=== PATIENT | female | born 1995 | race African-American/Black ===

== ENCOUNTER 2021-01-04 19:24 | Emergency (ER) | payer BC, SELFPAY ==
[2021-01-04] MEDS ORDERED: Ondansetron PF 4 MG/2 ML Vial ONE (20:24)
[2021-01-04] MEDS ORDERED: Promethazine HCl 25 MG/ML VIAL ONE (20:25)
[2021-01-04 20:28] LABS: #Eosinphils 0.5 10x3/uL (0.0-0.5); #Monocytes 0.5 10x3/uL (0.0-1.1); #Neutrophils 6.3 10x3/uL (1.5-8.4); %Basophils 0.3 % (0.0-2.0); %Eosinophils 5.1 % (0.0-6.0); %Lymphocytes 23.4 % (18.0-47.0); %Monocytes 5.1 % (0.0-10.0); %Neutrophils 65.8 % (40.0-75.0); Hemoglobin 12.2 g/dL (12.0-15.5); Mean Corpuscular HGB CONC 31.9 g/dL (32.0-36.0); Mean Corpuscular Hemoglobin 27.9 pg (27.0-33.0); Mean Corpuscular Volume 87.4 fl (81.6-98.3); Mean Platelet Volume 9.8 fl (7.4-10.4); Platelet Count 253 10x3/uL (150-450); RBC Distribution Width 12.6 % (11.5-14.5); Red Blood Cell (RBC) Count 4.37 10x6/uL (3.90-5.03); White Blood Cell (WBC) Count 9.6 10x3/uL (3.5-10.5)
[2021-01-04 20:50] LABS: ALT (SGPT) 8 U/L (8-55); AST (SGOT) 16 U/L (5-34); Albumin 3.9 g/dL (3.5-5.0); Alkaline Phosphatase 61 U/L (40-110); Anion Gap 11 mmol/L (10-20); BUN (Urea Nitrogen) 8 mg/dL (7.0-18.7); Bilirubin, Total 0.2 mg/dL (0.2-1.2); Calc. Creatinine Clearance 0 mL/min (70-130); Calcium 9.3 mg/dL (7.8-10.44); Carbon Dioxide 24 mmol/L (22-29); Chloride 104 mmol/L (98-107); Globulin 3.7 g/dL (2.4-3.5); Glucose 106 mg/dL (70-105); Lipase 13 U/L (8-78); Potassium 3.4 mmol/L (3.5-5.1); Protein, Total 7.6 g/dL (6.0-8.3); Sodium 136 mmol/L (136-145)
[2021-01-04 21:34] LABS: Bilirubin Neg (Negative); Blood, Urine Negative (Negative); Clarity Clear (Clear); Glucose, Urine (Dipstick) Normal (Negative); Ketone, Urine 15 mg/dL (Negative); Leukocyte 25 (Negative); Nitrite Negative (Negative); Protein, Urine (Dipstick) Negative (Neg-Trace); pH, Urine 6.5 (5.0-9.0)
[2021-01-04 21:44] LABS: Bacteria/HPF Rare-Few HPF (None Seen); Mucous/LPF 1+ LPF (<2+); RBC/HPF None Seen HPF (0-3); Squamous Epithelial 0-3 HPF (0-3); WBC/HPF 0-3 HPF (0-3)
== END 2021-01-04 23:11 | disposition home or self-care (01) ==
LOC: CSHERS 19:24
DX: O21.9 Vomiting of pregnancy, unspecified (principal); O99.891 Other specified diseases and conditions complicating pregnancy; R19.7 Diarrhea, unspecified; O99.511 Diseases of the respiratory system complicating pregnancy, first trimester; J45.909 Unspecified asthma, uncomplicated; Z3A.08 8 weeks gestation of pregnancy
CPT/HCPCS: 80053; 81003; 81015; 83690; 85025; 96365; 96375; J2405; J2550

== ENCOUNTER 2021-03-04 08:07 | Emergency (ER) | payer BC, MEDICAID ==
[2021-03-04] MEDS ORDERED: Acetaminophen 500 MG TAB ONE (08:59)
[2021-03-04 17:29] LABS: SARS-CoV-2 PCR by NAA DETECTED (NotDetected)
== END 2021-03-04 10:48 | disposition home or self-care (01) ==
LOC: CSHERS 08:07
DX: U07.1 COVID-19 (principal); J45.909 Unspecified asthma, uncomplicated
CPT/HCPCS: 87804; 99283; U0003; U0005

== ENCOUNTER 2021-06-14 12:48 | Day surgery (SDC) | payer BC ==
[2021-06-14 13:15] VITALS: BMI 34.7
[2021-06-14] MEDS ORDERED: hydrALAZINE 20 MG/ML VIAL SLOW IVP PRN (13:29)
[2021-06-14] MEDS ORDERED: Ondansetron PF 4 MG/2 ML Vial IVP SCH (13:30)
[2021-06-14] MEDS ORDERED: Lactated Ringer's 1,000 ML IV SCH (13:30)
[2021-06-14 14:24] LABS: ALT (SGPT) 8 U/L (8-55); AST (SGOT) 17 U/L (5-34); Albumin 3.3 g/dL (3.5-5.0); Alkaline Phosphatase 74 U/L (40-110); Anion Gap 13 mmol/L (10-20); BUN (Urea Nitrogen) 6 mg/dL (7.0-18.7); Bilirubin, Total 0.3 mg/dL (0.2-1.2); Calc. Creatinine Clearance 210 mL/min (70-130); Carbon Dioxide 21 mmol/L (22-29); Chloride 107 mmol/L (98-107); Globulin 3.5 g/dL (2.4-3.5); Glucose 95 mg/dL (70-105); Potassium 3.5 mmol/L (3.5-5.1); Protein, Total 6.8 g/dL (6.0-8.3); Sodium 137 mmol/L (136-145)
[2021-06-14 14:32] LABS: #Eosinphils 0.3 10x3/uL (0.0-0.5); #Monocytes 0.4 10x3/uL (0.0-1.1); #Neutrophils 5.3 10x3/uL (1.5-8.4); %Basophils 0.4 % (0.0-2.0); %Eosinophils 3.6 % (0.0-6.0); %Lymphocytes 22.8 % (18.0-47.0); %Monocytes 5.5 % (0.0-10.0); %Neutrophils 67.4 % (40.0-75.0); Hemoglobin 10.7 g/dL (12.0-15.5); Mean Corpuscular HGB CONC 33.6 g/dL (32.0-36.0); Mean Corpuscular Hemoglobin 27.9 pg (27.0-33.0); Mean Platelet Volume 9.8 fl (7.4-10.4); Platelet Count 207 10x3/uL (150-450); RBC Distribution Width 13.2 % (11.5-14.5); Red Blood Cell (RBC) Count 3.83 10x6/uL (3.90-5.03); White Blood Cell (WBC) Count 7.9 10x3/uL (3.5-10.5)
[2021-06-14 15:49] LABS: Bilirubin Neg (Negative); Blood, Urine Negative (Negative); Clarity Clear (Clear); Glucose, Urine (Dipstick) Normal (Negative); Ketone, Urine 15 mg/dL (Negative); Leukocyte 25 (Negative); Nitrite Negative (Negative); Protein, Urine (Dipstick) 15 mg/dl (Neg-Trace); pH, Urine 6.5 (5.0-9.0)
[2021-06-14 15:58] LABS: Bacteria/HPF Rare-Few HPF (None Seen); Mucous/LPF 1+ LPF (<2+); RBC/HPF 0-3 HPF (0-3); Squamous Epithelial 0-3 HPF (0-3); WBC/HPF 0-3 HPF (0-3)
[2021-06-14] MEDS ORDERED: Promethazine 25 MG TAB PO PRN (16:24)
== END 2021-06-14 16:26 | disposition home or self-care (01) ==
LOC: CSHLD/OP 12:48
PROVIDERS: ATTEND Obstetrics & Gynecology
DX: O21.2 Late vomiting of pregnancy (principal); Z3A.30 30 weeks gestation of pregnancy; Z88.0 Allergy status to penicillin
CPT/HCPCS: 36415; 76815; 80053; 81003; 81015; 85025; 96360; 96361; 96375; 99282; J2405

== ENCOUNTER 2021-07-30 02:05 | Inpatient (IN) | payer BC ==
[2021-07-30 02:26] VITALS: BMI 33.6
[2021-07-30] MEDS ORDERED: Butorphanol Tartrate 1 MG/ML VIAL ONE ×2 (04:44→07:40)
[2021-07-30] MEDS ORDERED: Ondansetron PF 4 MG/2 ML Vial IVP PRN ×3 (06:38→23:28)
[2021-07-30] MEDS ORDERED: HYDROcodone/Acetaminophen 5/325 mg Tablet PO PRN ×2 (06:38)
[2021-07-30] MEDS ORDERED: hydrALAZINE 20 MG/ML VIAL SLOW IVP PRN (06:38)
[2021-07-30] MEDS ORDERED: Methylergonovine 0.2 MG/ML VIAL IM PRN (06:38)
[2021-07-30] MEDS ORDERED: Promethazine HCl 25 MG/ML VIAL IM PRN ×3 (06:38→23:28)
[2021-07-30] MEDS ORDERED: Ibuprofen 800 MG TAB PO PRN (06:38)
[2021-07-30] MEDS ORDERED: Lidocaine 1% (PF) 30 ML VIAL SC PRN (06:38)
[2021-07-30] MEDS ORDERED: Butorphanol Tartrate 1 MG/ML VIAL SLOW IVP PRN (06:38)
[2021-07-30] MEDS ORDERED: Misoprostol 200 MCG TAB PR PRN (06:38)
[2021-07-30] MEDS ORDERED: Acetaminophen 500 MG TAB PO PRN (06:38)
[2021-07-30] MEDS ORDERED: NS w/ Oxytocin 30 units 500 ML IV SCH (06:45)
[2021-07-30 07:44] LABS: Hemoglobin 10.7 g/dL (12.0-15.5); Mean Corpuscular HGB CONC 31.8 g/dL (32.0-36.0); Mean Corpuscular Hemoglobin 26.7 pg (27.0-33.0); Mean Corpuscular Volume 83.8 fl (81.6-98.3); Mean Platelet Volume 10.8 fl (7.4-10.4); Platelet Count 199 10x3/uL (150-450); RBC Distribution Width 13.6 % (11.5-14.5); Red Blood Cell (RBC) Count 4.01 10x6/uL (3.90-5.03); White Blood Cell (WBC) Count 9.8 10x3/uL (3.5-10.5)
[2021-07-30] MEDS: Vancomycin HCl 1 GM in Sodium Chloride 0.9% 250 ML 250 ML IVPB SCH ×2 (07:54→19:52)
[2021-07-30] MEDS ORDERED: ePHEDrine Sulfate 50 MG/10 ML VIAL ONE (08:00)
[2021-07-30] MEDS ORDERED: Bupivacaine 0.25% HCL 30 ML VIAL ONE (08:00)
[2021-07-30] MEDS ORDERED: Bupivacaine PF 0.5% 30 ML VIAL ONE (08:00)
[2021-07-30 08:26] LABS: Hep B Surf Ag Non-Reactive S/CO (NonReactive)
[2021-07-30 08:27] LABS: Syphilis Antibody Nonreactive (Nonreactive); Syphilis Antibody Index 0.05 S/CO (<1.00 Non-Reactive)
[2021-07-30 08:33] LABS: HBSAg Index 0.14 S/CO (0-0.99)
[2021-07-30] MEDS ORDERED: Vancomycin 1 GM in Premix Bag 1 BAG IVPB SCH (09:00)
[2021-07-30 09:28] LABS: SARS-CoV-2 NAA Rapid Test Not Detected (NotDetected)
[2021-07-30] MEDS ORDERED: Fentanyl 2 mcg/Bup 0.1% Cadd 100 ML ONE ×2 (09:35→16:28)
[2021-07-30] MEDS ORDERED: Naloxone HCl 0.4 mg/ml Vial IVP PRN ×4 (10:09→23:28)
[2021-07-30] MEDS ORDERED: ePHEDrine Sulfate 50 MG/10 ML VIAL SLOW IVP PRN (10:09)
[2021-07-30] MEDS ORDERED: Acetaminophen 325 MG TAB PO PRN (10:09)
[2021-07-30] MEDS ORDERED: Lactated Ringer's 500 ML IV PRN (10:09)
[2021-07-30] MEDS ORDERED: diphenhydrAMINE 50 MG/ML VIAL IVP PRN ×2 (10:09→23:28)
[2021-07-30] MEDS ORDERED: Moisturizing Cream (Eucerin) 113 GM JAR TOP PRN ×2 (10:09→23:28)
[2021-07-30] MEDS ORDERED: Fentanyl 2 mcg/Bupivacaine 0.1% Cassette 100 ML EPIDURAL SCH (10:15)
[2021-07-30] MEDS ORDERED: Communication Order-Pharmacy FS SCH ×2 (10:15→23:30)
[2021-07-30] MEDS ORDERED: Famotidine/PF 20 mg/2ml Vial ONE (19:05)
[2021-07-30] MEDS ORDERED: Clindamycin/D5W 900 mg/50 ml Premix Bag ONE (21:52)
[2021-07-30] MEDS ORDERED: Tranexamic Acid 1,000 MG/10 ML VIAL ONE (21:52)
[2021-07-30] MEDS ORDERED: Lidocaine 2% MPF 10 ML AMP (For Epidural Use) ONE (21:56)
[2021-07-30] MEDS ORDERED: Ondansetron PF 4 MG/2 ML Vial ONE (21:57)
[2021-07-30] MEDS ORDERED: Oxytocin 10 UNITS/ML VIAL ONE (21:57)
[2021-07-30] MEDS ORDERED: PHENYLEPHRINE-NS 100 MCG/ML 10 ML SYRINGE ONE (22:17)
[2021-07-30] MEDS ORDERED: Morphine PF 10 MG/10 ML VIAL ONE (22:34)
[2021-07-30 22:51] LABS: RapidComm Collect By CBN; pH (Cord, venous) 7.137 (7.250-7.350)
[2021-07-30 22:53] LABS: RapidComm Collect By CBN
[2021-07-30] MEDS ORDERED: Ondansetron HCl/PF 4 MG/2 ML Vial IVP PRN (23:28)
[2021-07-30] MEDS ORDERED: Naloxone HCl 0.4 mg/ml Vial IV PRN (23:28)
[2021-07-30] MEDS ORDERED: Fentanyl 100 MCG/2 ML VIAL SLOW IVP PRN (23:28)
[2021-07-30] MEDS ORDERED: Promethazine HCl 25 MG SUPP PR PRN (23:28)
[2021-07-30] MEDS ORDERED: Meperidine HCl/PF 25 MG/ML VIAL SLOW IVP PRN (23:28)
[2021-07-30] MEDS ORDERED: Ketorolac Tromethamine 30 MG/ML VIAL IVP SCH (23:30)
[2021-07-30] MEDS ORDERED: Ketorolac Tromethamine 30 MG/ML VIAL ONE (23:31)
[2021-07-31] MEDS ORDERED: Ondansetron PF 4 MG/2 ML Vial IVP PRN (02:19)
[2021-07-31] MEDS ORDERED: Methylergonovine 0.2 MG/ML VIAL IM PRN (02:19)
[2021-07-31] MEDS ORDERED: diphenhydrAMINE 25 MG CAP PO PRN (02:19)
[2021-07-31] MEDS ORDERED: Benzocaine-Menthol 82.5 ML CAN TOP PRN (02:19)
[2021-07-31] MEDS ORDERED: Boostrix 0.5 ML (Tdap) VIAL IM ONE (02:19)
[2021-07-31] MEDS ORDERED: Lanolin Ointment 7 GM TUBE TOP PRN (02:19)
[2021-07-31] MEDS ORDERED: Promethazine HCl 25 MG/ML VIAL IM PRN (02:19)
[2021-07-31] MEDS ORDERED: Varicella virus, LIVE 0.5 ML VIAL SC ONE (02:19)
[2021-07-31] MEDS ORDERED: Bisacodyl 10 MG SUPP PR PRN (02:19)
[2021-07-31] MEDS ORDERED: Preparation H Ointment 28 GM TUBE PR PRN (02:19)
[2021-07-31] MEDS ORDERED: hydrALAZINE 20 MG/ML VIAL SLOW IVP PRN (02:19)
[2021-07-31] MEDS ORDERED: Milk Of Magnesia 30 ML UDCUP PO PRN (02:19)
[2021-07-31] MEDS ORDERED: Measles/Mumps/Rubella 10 MCG/0.5 ML VIAL SC ONE (02:19)
[2021-07-31] MEDS ORDERED: NS w/ Oxytocin 30 units 500 ML IV SCH (03:00)
[2021-07-31 03:45] LABS: Hemoglobin 9.3 g/dL (12.0-15.5); Mean Corpuscular HGB CONC 32.4 g/dL (32.0-36.0); Mean Corpuscular Volume 83.4 fl (81.6-98.3); Mean Platelet Volume 10.3 fl (7.4-10.4); Platelet Count 192 10x3/uL (150-450); RBC Distribution Width 13.8 % (11.5-14.5); Red Blood Cell (RBC) Count 3.44 10x6/uL (3.90-5.03); White Blood Cell (WBC) Count 22.7 10x3/uL (3.5-10.5)
[2021-07-31] MEDS: Ketorolac Tromethamine 30 MG/ML VIAL IVP PRN ×2 (05:45→15:02)
[2021-07-31] MEDS: Ferrous Sulfate 325 MG TAB PO SCH ×2 (08:39→16:48)
[2021-07-31] MEDS: Prenatal Vitamin 1 TAB PO SCH (08:39)
[2021-07-31] MEDS: Docusate 100 MG CAP PO SCH ×2 (08:39→20:18)
[2021-07-31] MEDS: HYDROcodone/Acetaminophen 5/325 mg Tablet PO PRN ×3 (11:10→20:18)
[2021-07-31] MEDS ORDERED: Zolpidem Tartrate 5 MG TAB PO PRN (11:30)
[2021-07-31] MEDS ORDERED: Ketorolac Tromethamine 30 MG/ML VIAL IVP SCH (23:45)
[2021-08-01] MEDS: Ibuprofen 800 MG TAB PO SCH ×3 (04:28→21:11)
[2021-08-01] MEDS: HYDROcodone/Acetaminophen 5/325 mg Tablet PO PRN ×5 (04:29→21:56)
[2021-08-01] MEDS: Ferrous Sulfate 325 MG TAB PO SCH ×2 (08:21→17:12)
[2021-08-01] MEDS: Docusate 100 MG CAP PO SCH ×2 (08:21→21:11)
[2021-08-01] MEDS: Prenatal Vitamin 1 TAB PO SCH (08:21)
[2021-08-02] MEDS: HYDROcodone/Acetaminophen 5/325 mg Tablet PO PRN ×2 (03:27→08:13)
[2021-08-02] MEDS: Ibuprofen 800 MG TAB PO SCH (05:06)
[2021-08-02 07:53] VITALS: BP 124/70; TEMP 97.4
[2021-08-02] MEDS: Docusate 100 MG CAP PO SCH (08:13)
[2021-08-02] MEDS: Ferrous Sulfate 325 MG TAB PO SCH (08:13)
[2021-08-02] MEDS: Prenatal Vitamin 1 TAB PO SCH (08:13)
== END 2021-08-02 11:35 | disposition home or self-care (01) | DRG 788 ==
LOC: CSHLD/OP 02:05 → CSHLD 07:42 → CSHPP 07-31 02:12
PROVIDERS: ADMIT Obstetrics & Gynecology; ATTEND Obstetrics & Gynecology
PROC: 10D00Z1 Extraction of Products of Conception, Low, Open Approach (ICD-10-PCS; principal; 2021-07-30)
DX: O99.824 Streptococcus B carrier state complicating childbirth (principal); Z20.822 Contact with and (suspected) exposure to COVID-19; Z37.0 Single live birth; Z3A.37 37 weeks gestation of pregnancy; Z88.1 Allergy status to other antibiotic agents; Z88.0 Allergy status to penicillin; O76 Abnormality in fetal heart rate and rhythm complicating labor and delivery; O62.1 Secondary uterine inertia
CPT/HCPCS: 36415; 51702; 82805; 85027; 86780; 86850; 86900; 86901; 87340; 99285; J0595; J1885; J2210; J2274; J2405; J2590; J3370; J7050; S0020; U0002

== ENCOUNTER 2024-01-12 00:24 | Emergency (ER) | payer BC, SELFPAY ==
[2024-01-12] MEDS ORDERED: methylPREDNISolone Sod Succ/PF 125 MG/2 ML VIAL ONE (00:56)
[2024-01-12] MEDS ORDERED: Magnesium 2 GM/50 ML BAG (IN WATER) ONE (00:56)
[2024-01-12] MEDS ORDERED: Ketorolac Tromethamine 30 MG (1 mL) VIAL ONE (01:05)
== END 2024-01-12 02:45 | disposition home or self-care (01) ==
LOC: CSHERS 00:24
DX: J45.909 Unspecified asthma, uncomplicated (principal); Z55.0 Illiteracy and low-level literacy
CPT/HCPCS: 71045; 87428; 94640; 94760; 96374; 96375; J1885; J2919; J3475